=== PATIENT | male | born 1950 | race Caucasian/White ===

== ENCOUNTER 2017-12-26 09:52 | Emergency (ER) | payer OTHER, SELFPAY ==
[2017-12-26 10:08] VITALS: BP 157/76; PULSE 52; RESP 12; TEMP 35.5; O2SAT 98
--- NOTE | 2017-12-26 11:28 | ED.SKABFB ---
HPI - Skin/Abscess/Foreign Bdy General Chief complaint: Skin/Abscess/Foreign Body Stated complaint: INFECTION ON RIGHT MIDDLE FINGER Time Seen by Provider: 12/26/17 11:22 Source: patient Mode of arrival: ambulatory Limitations: no limitations History of Present Illness HPI narrative: Patient is a 67-year-old male presents with right middle finger distal abrasion. He says he has a puppy at home not entirely sure what happened. He has been putting Neosporin and hydrogen peroxide on it he is worried that he may need more antibiotics. He denies any fever swelling redness or gross pus. He denies any decreased range of motion numbness or tingling. complaint: lesion Related Data Home Medications Medication Instructions Recorded Confirmed Fish Oil 1 cap PO DAILY #0 01/13/11 12/26/17 multivitamin 1 tab PO DAILY #0 01/13/11 12/26/17 donepezil [Aricept] 1 tab PO BID #0 06/28/12 12/26/17 zolpidem 5 mg PO HSP PRN #0 08/23/16 12/26/17 atorvastatin 20 mg PO DAILY 12/26/17 12/26/17 hydrocortisone 1 applic TOPICAL BID PRN 12/26/17 12/26/17 itraconazole 1 cap PO [id number] 12/26/17 12/26/17 omeprazole 20 mg PO DAILY 12/26/17 12/26/17 valacyclovir 1,000 mg PO DAILY 12/26/17 12/26/17 Allergies Allergy/AdvReac Type Severity Reaction Status Date / Time Sulfa (Sulfonamide Allergy Mild hives Unverified 08/02/17 13:10 Antibiotics) [SULFA (SULFONAMIDE ANTIBIOTICS)] acetaminophen [ACETAMINOPHEN] AdvReac Mild HEADACHE Unverified 08/02/17 13:10 Review of Systems Review of Systems GENERAL: Denies chills,fever HEENT: Denies throat pain RESPIRATORY: Denies dyspnea, cough, wheezing CARDIOVASCULAR: Denies chest pain, palpitations GASTROINTESTINAL: Denies nausea, vomiting MUSCULOSKELETAL: Denies extremity pain, injury SKIN: See HPI NEUROLOGIC: Denies weakness, dizziness, headache, numbness 8 point review of systems is negative except for those stated above and HPI PFSH Medical History Anxiety (Acute) Depression (Acute) Hyperlipidemia (Acute) Social History marital status: Smoking Status: Never smoker alcohol intake: never substance use type: does not use Exam Initial Vital Signs Initial Vital Signs: Vital Signs Temperature 96 F L 12/26/17 10:08 Pulse Rate 52 L 12/26/17 10:08 Respiratory Rate 12 12/26/17 10:08 Blood Pressure 157/76 H 12/26/17 10:08 Pulse Oximetry 98 12/26/17 10:08 GENERAL: Well-appearing, well-nourished and in no acute distress. CARDIOVASCULAR: peripheral pulses in tact, cap refill <2 sec RESPIRATORY: No respiratory distress, speaks in full sentences without difficulty EXTREMITIES: Normal range of motion, no clubbing or edema. Neurovascularly intact NEUROLOGICAL: Cranial nerves II through XII grossly intact. Normal gait and speech. SKIN: right middle distal finger has 0.5 cm x 0.5 cm lesion no fluctuation no gross pus does not involve the nail bed. Full flexion-extension opposition of finger there is no significant swelling or erythema of the finger Course Vital Signs - 8 hr 12/26/17 10:08 Temperature 96 F L Pulse Rate 52 L Respiratory Rate 12 Blood Pressure 157/76 H Pulse Oximetry 98 Discharge Plan Departure Patient Disposition: Home Clinical Impression: Abrasion of right middle finger, initial encounter Instructions: DI for Abrasion Activity Restrictions/Additional Instructions: *You have been diagnosed with abrasion right middle finger *What to do: At this time it does not appear that he needed antibiotics. Continue to keep it clean and dry with soap and water. Do not put hydrogen peroxide or alcohol wipes on it. He may apply antibiotic ointment on it twice a day to help it heal *Continue to take medications as directed *Follow up with your primary care provider in 2-3 days *Return to ER if you should have is swelling of the finger, redness, fever, decreased range of motion of finger or any new, worsening or concerning symptoms Prescriptions: No Action Fish Oil 1 cap PO DAILY Qty: 0 RF: 0 multivitamin Tablet 1 tab PO DAILY Qty: 0 RF: 0 donepezil [Aricept] 5 MG tablet 1 tab PO BID Qty: 0 RF: 0 zolpidem 5 MG tablet 5 mg PO HSP PRN (Reason: Insomnia) Qty: 0 RF: 0 atorvastatin 20 mg Tablet 20 mg PO DAILY RF: 0 valacyclovir 1 gram Tablet 1,000 mg PO DAILY RF: 0 omeprazole 20 mg Capsule,Delayed Release(Dr/Ec) 20 mg PO DAILY RF: 0 hydrocortisone 2.5 % Ointment 1 applic TOPICAL BID PRN (Reason: unknown) RF: 0 itraconazole 100 mg Capsule 1 cap PO [id number] RF: 0 Referrals: Jose Alberto Correia MD [Primary Care Provider] -
[2017-12-26 11:38] VITALS: BP 158/101; PULSE 50; RESP 16; O2SAT 100
== END 2017-12-26 11:40 | disposition home or self-care (01) ==
PROVIDERS: Emergency Provider Emergency Medicine; PCP Family Medicine
DX: S60.412A Abrasion of right middle finger, initial encounter (principal)
CPT/HCPCS: 99282

== ENCOUNTER → 2018-01-29 09:58 | Outpatient (CLI) | payer OTHER, SELFPAY ==
--- NOTE | 2018-01-29 | DI.RAD.S_ITS ---
PROCEDURE: XR TOE LT MIN 2V INDICATIONS: PAIN TECHNIQUE: 3 views of the left first toe(s) acquired. COMPARISON: None. FINDINGS: Bones: No fractures or dislocations. No suspicious bony lesions. Soft tissues: No suspicious soft tissue densities. IMPRESSION: Source of pain is not seen. No trauma found or evidence of underlying foreign body or infection seen. Dictated by: Chris Vila M.D. on 01/29/2018 at 10:42 Approved by: Chris Vila M.D. on 01/29/2018 at 10:43
== END ==
PROVIDERS: PCP Family Medicine; Visit Provider Nurse Practitioner Family
DX: M79.675 Pain in left toe(s) (principal)
CPT/HCPCS: 73660

== ENCOUNTER → 2018-03-27 13:13 | Outpatient (CLI) | payer OTHER, SELFPAY ==
--- NOTE | 2018-03-27 | DI.MRI.S_ITS ---
PROCEDURE: MR SHOULDER RT WO CON INDICATIONS: FAILURE OF ROTATOR CUFF REPAIR TECHNIQUE: Noncontrast oblique coronal T2 fast spin echo with fat saturation, oblique sagittal T1 spin echo and T2 fast spin echo with fat saturation, axial T1 spin echo and T2 fast spin echo with fat saturation through the shoulder. COMPARISON: [facility], CR, XR SHOULDER 2+ VIEWS RIGHT, 03/11/2018, 12:28. [facility], MR, SHOULDER WITHOUT CONTRAST, 03/28/2012, 12:52. FINDINGS: Image quality: Diagnostic. Rotator cuff: Complete tears are present involving the supraspinatus and infraspinatus tendons with retraction of the torn tendon fragments to the level of the glenoid. This tear measures at least 5 cm in transverse dimension with retraction of the torn tendon fragments by approximately 5 cm, as well. Supraspinatus muscle atrophy is evident. There is edema of the infraspinatus muscle with fluid extending along the myotendinous junction, suggesting a delaminating/interstitial partial-thickness tear. The subscapularis tendon demonstrates moderate to high-grade partial-thickness tearing along the articular surface with corresponding tendinopathy. The teres minor tendon is intact. No significant subscapularis or teres minor muscle atrophy is evident. Bones and bursae: There is no acute fracture, dislocation, or suspicious osseous lesion. Postoperative changes of the humeral head are incidentally noted. There are moderate degenerative changes of the glenohumeral joint. Moderate area of focal marrow edema is evident involving the greater tuberosity, which is felt to be degenerative. There is a large glenohumeral joint effusion freely communicates with the subacromial subdeltoid bursa and the acromioclavicular joint. Postoperative changes of the acromioclavicular joint are incidentally noted. Capsule and soft tissues: Evaluation of the labrum and the glenohumeral ligaments is difficult without intra-articular contrast. However, there is circumferential tearing of the labrum that is more pronounced in the anterior and superior margins of the labrum. No detached labral fragments are large. Labral cysts are identified. This appearance has progressed in the interim. The long head of the biceps tendon is not seen within the bicipital groove and may be related to interval biceps tenodesis or complete rupture of the long head of the biceps tendon retraction beyond the bicipital groove. Mild edema about the inferior glenohumeral ligament is present. There is edema identified involving the lateral margin of the deltoid muscle. IMPRESSION: 1. Complete tears of the supraspinatus and infraspinatus tendons with retraction beyond the glenoid. This supraspinatus tear probably is subacute, given the muscle atrophy. However, given lack of muscle atrophy in the interstitial/delaminating partial-thickness tearing along the myotendinous junction, the infraspinatus tendon tear is felt to be acute. 2. Moderate to high grade articular surface partial thickness tearing of the subscapularis tendon with corresponding tendinopathy. Likely is tearing of the transverse ligament. 3. Circumferential tearing of the labrum is more pronounced superiorly and anteriorly. 4. Full-thickness tear of the long head of the biceps tendon with distal retraction beyond the bicipital groove. 5. Probable inferior glenohumeral ligament sprain. 6. Postoperative changes of the humeral head and acromioclavicular joint. 7. Large glenohumeral joint effusion is noted to communicate with the subacromial subdeltoid bursa. 8. Moderate lateral deltoid muscle strain. Dictated by: Cristian Cespedes M.D. on 03/27/2018 at 14:26 Approved by: Cristian Cespedes M.D. on 03/27/2018 at 14:33
== END ==
PROVIDERS: PCP Family Medicine; Visit Provider Orthopaedic Surgery
DX: M96.89 Other intraoperative and postprocedural complications and disorders of the musculoskeletal system (principal); M75.121 Complete rotator cuff tear or rupture of right shoulder, not specified as traumatic; S46.111A Strain of muscle, fascia and tendon of long head of biceps, right arm, initial encounter; S43.491A Other sprain of right shoulder joint, initial encounter; S46.811A Strain of other muscles, fascia and tendons at shoulder and upper arm level, right arm, initial encounter; M25.411 Effusion, right shoulder
CPT/HCPCS: 73221

== ENCOUNTER → 2019-03-05 10:47 | Outpatient (CLI) | payer OTHER, SELFPAY ==
--- NOTE | 2019-03-05 | DI.RAD.S_ITS ---
PROCEDURE: XR FOOT RT MIN 3V INDICATIONS: BILATERAL FOOT PAIN TECHNIQUE: 3 views of the foot were acquired. COMPARISON: None. FINDINGS: Bones: No fractures or dislocations. No suspicious bony lesions. Minimal first MTP joint degeneration. Soft tissues: No tibiotalar joint effusion. Achilles tendon appears normal. IMPRESSION: Overall, unremarkable examination as above. If the patient's pain or other symptoms persist, consider further evaluation with MRI Dictated by: Dennis Horton M.D. on 03/05/2019 at 16:21 Approved by: Dennis Horton M.D. on 03/05/2019 at 16:22
--- NOTE | 2019-03-05 | DI.RAD.S_ITS ---
PROCEDURE: XR FOOT LT MIN 3V INDICATIONS: BILATERAL FOOT PAIN TECHNIQUE: 3 views of the foot were acquired. COMPARISON: None. FINDINGS: Bones: No fractures or dislocations. No suspicious bony lesions. Plantar calcaneal spur. Minimal first MTP joint degeneration. Great toe interphalangeal degenerative joint disease. Marginal lucency projects at the PIP joint of the fifth toe. Soft tissues: No tibiotalar joint effusion. Achilles tendon appears normal. IMPRESSION: Plantar calcaneal spur. Degenerative changes as above. Dictated by: Dennis Horotn M.D. on 03/05/2019 at 16:19 Approved by: eDnnis Horton M.D. on 03/05/2019 at 16:21
== END ==
PROVIDERS: PCP Family Medicine; Visit Provider Nurse Practitioner Family
DX: M79.671 Pain in right foot (principal); M79.672 Pain in left foot; M19.072 Primary osteoarthritis, left ankle and foot; M77.32 Calcaneal spur, left foot
CPT/HCPCS: 73630

== ENCOUNTER → 2021-05-24 08:55 | Outpatient (CLI) | payer OTHER, SELFPAY ==
--- NOTE | 2021-05-24 | DI.MRI.S_ITS ---
PROCEDURE: MR HEAD/BRAIN WO/W CON INDICATIONS: Delusional disorders,Cognitive changes TECHNIQUE: Noncontrast axial T1 spin echo, axial T2 fast spin echo, sagittal and axial FLAIR, coronal T2 fast spin echo, axial gradient echo, axial diffusion and ADC through the brain. After the administration of contrast, axial and coronal 3D VIBE or T1 spin echo with fat saturation through the brain. COMPARISON: None. FINDINGS: Image quality: Excellent. CSF Spaces: Basal cisterns are patent. No extra-axial fluid collections. Ventricles are normal in size and shape. Brain: Moderate global cerebral volume loss and moderate to severe chronic microvascular ischemic changes. No mass effect or midline shift. No evidence of brain parenchymal edema or suspicious FLAIR signal abnormality. No abnormal intracranial susceptibility or enhancement. No restricted diffusion. The major intracranial vascular flow-related signal voids are maintained. Skull and face: Calvarial marrow is normal in signal. Orbits appear normal. Sinuses: Mild mucosal thickening in the left maxillary sinus. IMPRESSION: No acute intracranial finding. Moderate global cerebral volume loss and moderate chronic microvascular ischemic changes. No definite regional or lobar predilection to the volume loss identified. Dictated by: Louie Cardoza M.D. on 05/24/2021 at 10:01 Approved by: Louie Cardoza M.D. on 05/24/2021 at 10:03
== END ==
PROVIDERS: PCP Family Medicine; Referring Provider Psychiatry & Neurology Neurology; Visit Provider Psychiatry & Neurology Neurology
DX: R41.89 Other symptoms and signs involving cognitive functions and awareness (principal); F22 Delusional disorders
CPT/HCPCS: 70553

== ENCOUNTER → 2024-03-14 10:46 | Outpatient (CLI) | payer OTHER, SELFPAY ==
[2024-03-14 11:21] LABS: Add Manual Diff / Slide Review NO; Basophils Absolute Auto 100 /uL (0-100); Basophils Percent Auto 0.8 % (0-2); Eosinophils Absolute Auto 200 /uL (0-450); Eosinophils Percent Auto 2.5 % (2-4); Hematocrit 44.1 % (41-53); Lymphocytes Absolute Auto 1200 /uL (1100-4500); Lymphocytes Percent Auto 16.4 % (25-40); Mean Corpuscular HGB Conc 34.1 % (30-36); Mean Corpuscular Hemoglobin 36.4 PG (26-34); Mean Corpuscular Volume 106.8 fL (80-100); Monocytes Absolute Auto 600 /uL (0-900); Monocytes Percent Auto 8.1 % (3-14); Neutrophils Absolute Auto 5300 /uL (1500-7000); Neutrophils Percent Auto 72.2 % (50-75); Platelet Count 173 X10^3/uL (150-400); Red Blood Cell Count 4.12 X10^6/uL (4.5-5.9); Red Cell Distribution Width 14.1 % (11.6-14.8); White Blood Cell Count 7.3 X10^3/uL (4.5-11.0)
[2024-03-14 12:24] LABS: Ferritin 579 ng/mL (18-464)
== END ==
LOC: LAB 10:47
PROVIDERS: PCP Family Medicine; Referring Provider Family Medicine; Visit Provider Family Medicine
DX: E61.1 Iron deficiency (principal); D75.89 Other specified diseases of blood and blood-forming organs; D64.9 Anemia, unspecified
CPT/HCPCS: 36415; 82728; 85025

== ENCOUNTER → 2024-04-16 12:05 | Outpatient (CLI) | payer OTHER, SELFPAY ==
--- NOTE | 2024-04-16 12:13 | DI.CT.S_ITS ---
PROCEDURE: CT MASTOID TEMPORAL INDICATIONS: Mass of left ear canal COMPARISON: None. TECHNIQUE: Noncontrast 0.6 mm thick axial sections acquired, with coronal reformats. FINDINGS: Image quality: Excellent. RIGHT: External auditory canal: Bony excrescences can be seen involving the deep aspect of the external auditory canal. Middle ear: The middle ear structures, including the ossicles and tympanic membrane, appear normal. No abnormal fluid or soft tissue density. Inner ear: Inner ear is normally formed and appears unremarkable. Facial nerve appears normal throughout is course. Mastoids: Mastoid air cells are clear. LEFT: External auditory canal: There are bony excrescence is seen involving the deep aspect of external auditory canal, particularly superiorly. Middle ear: The middle ear structures, including the ossicles and tympanic membrane, appear normal. No abnormal fluid or soft tissue density. Inner ear: Inner ear is normally formed and appears unremarkable. Facial nerve appears normal throughout its course. Mastoids: Mastoid air cells are clear. MISCELLANEOUS: Visualized surrounding bones appear unremarkable. Visualized intracranial structures, including the cerebellopontine angle cisterns, appear normal. IMPRESSION: There are bony excrescences seen involving the deep aspects of both external auditory canals, which are overall more prominent on the right than on the left. Please correlate with known patient history, including cold water exposure. Dictated by: Rocky Vicente M.D. on 04/16/2024 at 11:39 Approved by: Rocky Vicente M.D. on 04/16/2024 at 11:42
== END ==
PROVIDERS: PCP Family Medicine; Referring Provider Family Medicine; Visit Provider Family Medicine
DX: H90.A12 Conductive hearing loss, unilateral, left ear with restricted hearing on the contralateral side (principal); H93.8X2 Other specified disorders of left ear
CPT/HCPCS: 70480

== ENCOUNTER → 2024-05-13 16:54 | Outpatient (CLI) | payer OTHER, SELFPAY ==
[2024-05-13 17:19] LABS: Add Manual Diff / Slide Review NO; Basophils Absolute Auto 100 /uL (0-100); Basophils Percent Auto 0.8 % (0-2); Eosinophils Absolute Auto 200 /uL (0-450); Hematocrit 41.3 % (41-53); Hemoglobin 14.2 g/dL (13.5-17.5); Lymphocytes Absolute Auto 1600 /uL (1100-4500); Lymphocytes Percent Auto 22.6 % (25-40); Mean Corpuscular HGB Conc 34.5 % (30-36); Mean Corpuscular Hemoglobin 36.1 PG (26-34); Mean Corpuscular Volume 104.8 fL (80-100); Monocytes Absolute Auto 500 /uL (0-900); Monocytes Percent Auto 7.2 % (3-14); Neutrophils Absolute Auto 4800 /uL (1500-7000); Neutrophils Percent Auto 66.4 % (50-75); Platelet Count 164 X10^3/uL (150-400); Red Blood Cell Count 3.94 X10^6/uL (4.5-5.9); White Blood Cell Count 7.2 X10^3/uL (4.5-11.0)
[2024-05-13 17:32] LABS: BUN Creatinine Ratio 37.5 (6-22); Blood Urea Nitrogen 27 mg/dL (9-20); Calcium 8.7 mg/dL (8.4-10.2); Carbon Dioxide 22 mmol/L (22-32); Chloride 106 mmol/L (98-107); Estimated Glomerular Filt Rate > 60 mL/min (>60); Glucose 99 mg/dL (80-110); HEMOLYSIS 25 (0-50); Potassium 3.8 mmol/L (3.4-5.1); Sodium 135 mmol/L (137-145)
== END ==
PROVIDERS: PCP Family Medicine; Referring Provider Physician Assistant; Visit Provider Physician Assistant
DX: I48.19 Other persistent atrial fibrillation (principal)
CPT/HCPCS: 36415; 80048; 85025

== ENCOUNTER → 2024-08-16 13:47 | Outpatient (CLI) | payer OTHER, SELFPAY ==
[2024-08-16 14:15] LABS: Add Manual Diff / Slide Review NO; Basophils Absolute Auto 100 /uL (0-100); Eosinophils Absolute Auto 200 /uL (0-450); Hematocrit 43.6 % (41-53); Hemoglobin 15.3 g/dL (13.5-17.5); Lymphocytes Absolute Auto 1200 /uL (1100-4500); Lymphocytes Percent Auto 20.2 % (25-40); Mean Corpuscular Hemoglobin 35.9 PG (26-34); Mean Corpuscular Volume 102.6 fL (80-100); Monocytes Absolute Auto 400 /uL (0-900); Monocytes Percent Auto 6.6 % (3-14); Neutrophils Absolute Auto 4200 /uL (1500-7000); Neutrophils Percent Auto 69.2 % (50-75); Platelet Count 177 X10^3/uL (150-400); Red Blood Cell Count 4.25 X10^6/uL (4.5-5.9); Red Cell Distribution Width 13.5 % (11.6-14.8); White Blood Cell Count 6.1 X10^3/uL (4.5-11.0)
[2024-08-16 14:43] LABS: HEMOLYSIS < 15 (0-50); Iron 108 ug/dL (49-181)
[2024-08-16 14:44] LABS: Alanine Aminotransferase 28 IU/L (<50); Albumin 4.9 g/dL (3.5-5.0); Albumin Globulin Ratio 1.5 (1.0-2.8); Alkaline Phosphatase 115 U/L (38-126); Aspartate Aminotransferase 36 IU/L (17-59); BUN Creatinine Ratio 31.1 (6-22); Bilirubin Total 0.8 mg/dL (0.2-1.3); Blood Urea Nitrogen 19 mg/dL (9-20); Calcium 9.5 mg/dL (8.4-10.2); Carbon Dioxide 25 mmol/L (22-32); Chloride 104 mmol/L (98-107); Estimated Glomerular Filt Rate > 60 mL/min (>60); Globulin 3.2 g/dL (1.7-4.1); Glucose 103 mg/dL (70-99); HEMOLYSIS < 15 (0-50); Potassium 4.7 mmol/L (3.4-5.1); Sodium 140 mmol/L (137-145); Total Protein 8.1 g/dL (6.3-8.2)
[2024-08-16 14:53] LABS: Percent Iron Saturation 38 % (20-50); Total Iron Binding Capacity 282 ug/dL (261-462); Transferrin 232 mg/dL (206-381)
[2024-08-16 15:50] LABS: Folate 2.2 ng/mL (2.76-20.0); Vitamin B12 627 pg/mL (239-931)
[2024-08-17 17:06] LABS: Ferritin 720 ng/mL (18-464)
[2024-08-19 00:36] LABS: Zinc 63 ug/dL (44-115)
== END ==
PROVIDERS: PCP Family Medicine; Referring Provider Internal Medicine Hematology & Oncology; Visit Provider Internal Medicine Hematology & Oncology
DX: D75.89 Other specified diseases of blood and blood-forming organs (principal); E61.1 Iron deficiency
CPT/HCPCS: 36415; 80053; 82525; 82607; 82728; 82746; 83540; 83550; 83921; 84630; 85025

== ENCOUNTER → 2024-10-04 15:02 | Outpatient (CLI) | payer OTHER, SELFPAY ==
[2024-10-04 16:52] LABS: Iron 79 ug/dL (49-181)
[2024-10-04 17:02] LABS: Percent Iron Saturation 31 % (20-50); Total Iron Binding Capacity 259 ug/dL (261-462)
== END ==
PROVIDERS: PCP Family Medicine; Referring Provider Family Medicine; Visit Provider Family Medicine
DX: D75.89 Other specified diseases of blood and blood-forming organs (principal); E61.1 Iron deficiency
CPT/HCPCS: 36415; 83540; 83550

== ENCOUNTER → 2024-11-15 14:36 | Outpatient (CLI) | payer OTHER, SELFPAY ==
[2024-11-15 15:12] LABS: Add Manual Diff / Slide Review NO; Hematocrit 40.7 % (41-53); Hemoglobin 14.3 g/dL (13.5-17.5); Lymphocytes Absolute Auto 1000 /uL (1100-4500); Mean Corpuscular HGB Conc 35.2 % (30-36); Mean Corpuscular Hemoglobin 36.1 PG (26-34); Mean Corpuscular Volume 102.5 fL (80-100); Platelet Count 168 X10^3/uL (150-400)
[2024-11-15 15:37] LABS: Blood Urea Nitrogen 22 mg/dL (9-20); Calcium 9.1 mg/dL (8.4-10.2); Carbon Dioxide 25 mmol/L (22-32); Chloride 105 mmol/L (98-107); Estimated Glomerular Filt Rate > 60 mL/min (>60); Glucose 94 mg/dL (70-99); HEMOLYSIS 18 (0-50); Potassium 4.6 mmol/L (3.4-5.1); Sodium 138 mmol/L (137-145)
== END ==
LOC: LAB 14:38
PROVIDERS: PCP Family Medicine; Referring Provider Physician Assistant; Visit Provider Physician Assistant
DX: I48.19 Other persistent atrial fibrillation (principal)
CPT/HCPCS: 36415; 80048; 85025